=== PATIENT | male | born 1990 | race Two or more races ===

== ENCOUNTER 2025-09-25 09:57 | Inpatient (IN) | payer OTHER ==
[~2025-09-25] VITALS: Ht 162.6 cm; Wt 90.7 kg
--- NOTE | 2025-09-25 11:44 | NUR ---
SE RECIBE PTE MASCULINO ALERTTA, ACOMPAADO POR PADRE. PADRE REFEIRE PTE TIENE UN ABESO EN GLUTEO DERECHO, SE LE OBSERVA AREA ENROGECIDA. AL MOMENTO SE LE FERCHO SIGNOS VITALES, PTE EN ESPERA DE EVALUACION MEDICA.
[2025-09-25] MEDS ORDERED: VANCOMYCIN HCL 500 MG VIAL IV ONE (12:00)
[2025-09-25] MEDS ORDERED: KETOROLAC TROMETHAMINE 30 MG VIAL IM ONE (12:15)
[2025-09-25] MEDS ORDERED: ACETAMINOPHEN 325 MG TABLET PO ONE ×2 (12:15→14:07)
[2025-09-25] MEDS ORDERED: 0.9 % SODIUM CHLORIDE 1,000 ML IV SCH ×2 (12:15→18:45)
[2025-09-25] MEDS ORDERED: KETOROLAC TROMETHAMINE 30 MG VIAL ONE (14:07)
[2025-09-25 14:16] LABS: BASO % 0.4 % (0.1-1.2); EOS # 0.42 (0.04-0.54); EOS % 1.6 % (0.7-7.0); LYMPH # 2.41 (1.18-3.74); LYMPH % 9.1 % (19.3-53.1); MEAN PLATELET VOLUME 11.00 fl (9.4-12.4); MONO # 1.38 (0.24-0.82); MONO % 5.2 % (4.7-12.5); NEUT # 22.11 (1.56-6.13); NEUT % 83.2 % (34.0-71.1); RED CELL DISTRIBUTION WIDTH 13.6 % (11.6-14.4)
[2025-09-25 14:19] LABS: ERYTHROCYTE SEDIMENTATION RATE 81 mm/hr (0-15)
[2025-09-25 14:43] LABS: INR 0.98
--- NOTE | 2025-09-25 14:43 | NUR ---
SE ORIENTA PACIENTE SOBRE TRATAMIENTO MEDICO [place] [facility] MEDICA. SE ADMINISTRAN MEDICAMENTOS [place] [facility] MEDICA. SE FERCHO MUESTRAS DE LABORATORIO BAJO MEDDIDAS ASEPTICAS.
[2025-09-25 14:47] LABS: ALT/SGPT 47.0 U/L (12-78); AST/SGOT 26.0 U/L (15-37); BILIRUBIN TOTAL 0.33 mg/dL (0.3-1.2); BUN CREA RATIO 8.0 (7.0-25.0); CREATININE SERUM 0.85 mg/dL (0.70-1.30); GFR 102.57; GLOBULINA 4.9 G/DL (2.4-3.5); GLUCOSE FASTING 134.0 mg/dL (65-100); OSMOLALITY SERUM 276.0 MOSM/KG (275-295)
[2025-09-25] MEDS ORDERED: VANCOMYCIN HCL 1,000 MG VIAL IV SCH (18:59)
[2025-09-25] MEDS ORDERED: FAMOTIDINE/PF 20 MG in 0.9 % SODIUM CHLORIDE 8 ML IV PUSH SCH (18:59)
[2025-09-25] MEDS ORDERED: ONDANSETRON HCL 4 MG in 0.9 % SODIUM CHLORIDE 50 ML IV PRN (19:00)
[2025-09-25] MEDS ORDERED: ACETAMINOPHEN 500 MG GEL..CAP PO PRN (19:00)
[2025-09-25 19:15] VITALS: BP 100/70
[2025-09-25] MEDS ORDERED: FAMOTIDINE/PF 20 MG/2 ML VIAL ONE (19:23)
[2025-09-25] MEDS ORDERED: VANCOMYCIN HCL 1,000 MG VIAL ONE (19:23)
[2025-09-25] MEDS ORDERED: PIPERACILLIN/TAZOBACTAM SODIUM 3.375 GM VIAL IV ONE (19:23)
[2025-09-25] MEDS ORDERED: PIPERACILLIN/TAZOBACTAM SODIUM 3.375 GM in DEXTROSE 5 % IN WATER 100 ML IV SCH (20:00)
[2025-09-25 23:52] VITALS: BP 100/61; O2SAT 97
[2025-09-26] MEDS ORDERED: POTASSIUM CHLORIDE 20MEQ/100ML H2O PB IV ONE (04:43)
[2025-09-26 07:31] LABS: INR 0.98
[2025-09-26] MEDS ORDERED: ENOXAPARIN SODIUM 40 MG/0.4 ML SYRINGE SUBCUTANEO SCH (09:00)
[2025-09-26 10:57] VITALS: BP 115/54; O2SAT 100
[2025-09-26] MEDS ORDERED: LACTOBACILLUS ACIDOPHILUS 1 CAP CAP PO SCH (17:00)
[2025-09-26 17:12] VITALS: BP 105/67; O2SAT 99
[2025-09-26] MEDS ORDERED: PIPERACILLIN/TAZOBACTAM SODIUM 3.375 GM VIAL IV ONE (18:23)
[2025-09-26] MEDS ORDERED: LINEZOLID IN DEXTROSE 5% 300 ML IV SCH (21:00)
[2025-09-27 02:53] VITALS: BP 97/55; O2SAT 97
[2025-09-27] MEDS ORDERED: CHLORHEXIDINE GLUCONATE 120 ML BOTTLE TOP SCH (09:00)
[2025-09-27 09:16] VITALS: BP 130/88; O2SAT 99
[2025-09-27 10:31] LABS: URINE APPEARANCE Clear; URINE BILIRRUBIN Negative (NEGATIVE); URINE BLOOD Negative; URINE COLOR Yellow; URINE GLUCOSE Negative (NEGATIVE); URINE KETONE Negative (NEGATIVE); URINE LEUKOCYTE Negative; URINE NITRATE Negative; URINE PROTEIN Negative (NEGATIVE); URINE UROBILINOGEN 0.2 E.U./dl
[2025-09-27 10:34] LABS: URINE WBC 3.3 uL (0.0-23.2)
[2025-09-27 11:47] LABS: URINE BACTERIA 1.2 uL (0.0-1933); URINE CAST 0.00 uL (0.0-1.40); URINE EPITHELIAL CELLS 0.3 uL (0.0-38.8); URINE RBC 1.6 uL (0.0-20.8)
[2025-09-27] MEDS ORDERED: MUPIROCIN 22 GM OINT..GM TUBE NASAL SCH (17:00)
[2025-09-27 20:06] VITALS: BP 122/76; O2SAT 98
[2025-09-27] MEDS ORDERED: LINEZOLID 600 MG TABLET PO SCH (21:00)
[2025-09-28 03:28] VITALS: BP 121/75; O2SAT 97
[2025-09-28 08:42] VITALS: BP 123/67; O2SAT 97
== END 2025-09-28 14:22 | disposition home or self-care (01) | DRG 603 ==
LOC: ER 09:57 → SEC-K 19:21 → MEDI 19:21
PROVIDERS: General Practice; ADMIT Internal Medicine; ATTEND Internal Medicine
PROC: 8E0ZXY6 Isolation (ICD-10-PCS; principal; 2025-09-27)
DX: L02.415 Cutaneous abscess of right lower limb (principal); L03.115 Cellulitis of right lower limb; B95.61 Methicillin susceptible Staphylococcus aureus infection as the cause of diseases classified elsewhere; B95.62 Methicillin resistant Staphylococcus aureus infection as the cause of diseases classified elsewhere